=== PATIENT | female | born 1955 | race Two or more races ===

== ENCOUNTER 2023-09-29 07:09 | Emergency (ER) | payer OTHER ==
[~2023-09-29] VITALS: Ht 157.5 cm; Wt 63.5 kg
== END 2023-09-29 10:08 | disposition home or self-care (01) ==
LOC: ER 07:09
DX: J20.9 Acute bronchitis, unspecified (principal); E11.9 Type 2 diabetes mellitus without complications; I10 Essential (primary) hypertension; Z91.041 Radiographic dye allergy status

== ENCOUNTER 2024-10-30 14:18 | Emergency (ER) | payer OTHER ==
[~2024-10-30] VITALS: Ht 157.5 cm; Wt 61.2 kg
[2024-10-30] MEDS ORDERED: KETOROLAC TROMETHAMINE 60 MG VIAL IM ONE ×2 (17:00)
[2024-10-30] MEDS ORDERED: TRAMADOL HCL 50 MG TABLET PO ONE (18:45)
[2024-10-30 19:47] LABS: URINE APPEARANCE Clear; URINE BILIRRUBIN Negative (NEGATIVE); URINE BLOOD Negative; URINE COLOR Yellow; URINE KETONE Negative (NEGATIVE); URINE LEUKOCYTE Negative; URINE NITRATE Negative; URINE PROTEIN Negative (NEGATIVE); URINE UROBILINOGEN 0.2 E.U./dl
[2024-10-30 19:49] LABS: HEMATOCRIT 37.4 % (36.0-45.00); HEMOGLOBIN 12.2 g/dL (12.0-15.00); MEAN CELL VOLUME 88.7 fL (80.00-100.00); MEAN CORPUSCULAR HGB CONC 32.7 g/dl (32.0-36.0); PLATELET COUNT 208 K/uL (150-450); RED BLOOD COUNT 4.22 M/uL (4.00-6.00); RED CELL DISTRIBUTION WIDTH 14.4 % (11.5-14.5)
[2024-10-30 19:51] LABS: URINE BACTERIA 198.2 uL (0.0-1933); URINE EPITHELIAL CELLS 9.7 uL (0.0-38.8); URINE WBC 3.9 uL (0.0-23.2)
[2024-10-30 19:52] LABS: URINE CAST 0.58 uL (0.0-1.40); URINE GLUCOSE >=1000 MG/DL (NEGATIVE); URINE RBC 0.4 uL (0.0-20.8)
[2024-10-30 20:05] LABS: INR 0.95; PARTIAL THROMBOPLASTIN TIME 23.9 SECONDS (22.0-34.0); PROTHROMBIN TIME 10.4 SECONDS (9.0-11.5)
[2024-10-30 20:11] LABS: ALBUMIN 4.1 gm/dL (3.4-5.0); BILIRUBIN TOTAL 0.28 mg/dL (0.3-1.2); CALCIUM 10.1 mg/dL (8.5-10.1); CREATININE SERUM 1.2 mg/dL (0.55-1.02); GFR 44.81; GLOBULINA 4.2 G/DL (2.4-3.5); POTASSIUM 4.94 mEq/L (3.5-5.1); TOTAL PROTEIN 8.3 gm/dL (6.4-8.2)
== END 2024-10-30 20:55 | disposition home or self-care (01) ==
LOC: ER 14:20
PROVIDERS: General Practice
DX: S69.82XA Other specified injuries of left wrist, hand and finger(s), initial encounter (principal); W19.XXXA Unspecified fall, initial encounter; Y93.89 Activity, other specified; Y92.89 Other specified places as the place of occurrence of the external cause; Y99.8 Other external cause status; M12.539 Traumatic arthropathy, unspecified wrist; Z91.013 Allergy to seafood; Z91.041 Radiographic dye allergy status
CPT/HCPCS: 29125; 36415; 71046; 73100; 93005; 96372; 99283; J1885

== ENCOUNTER 2024-11-03 06:07 | Day surgery (SDC) | payer OTHER ==
[~2024-11-03] VITALS: Ht 157.5 cm; Wt 62.6 kg
[2024-11-03 14:43] VITALS: BP 117/68
[2024-11-03] MEDS ORDERED: CEFAZOLIN SODIUM 1,000 MG VIAL ONE (14:51)
[2024-11-03] MEDS ORDERED: LIDOCAINE HCL 1%/EPINEPHRINE 20ML VIAL IJ ONE (15:30)
[2024-11-03] MEDS ORDERED: BUPIVACAINE HCL/MPF 0.5% 30ML VIAL ONE (15:30)
[2024-11-03] MEDS ORDERED: POVIDONE-IODINE 118 ML BOTT TOP ONE (16:41)
[2024-11-03] MEDS ORDERED: DUI500 PO (16:59)
[2024-11-03] MEDS ORDERED: PERCOCET 5-3251 EACH PO (16:59)
[2024-11-03] MEDS ORDERED: ALEVE220 M1 PO (16:59)
== END 2024-11-03 19:40 | disposition home or self-care (01) ==
LOC: CIR.AMB 06:07
PROVIDERS: ATTEND Orthopaedic Surgery
DX: S52.532A Colles' fracture of left radius, initial encounter for closed fracture (principal); S52.692A Other fracture of lower end of left ulna, initial encounter for closed fracture; Z91.041 Radiographic dye allergy status; Z91.013 Allergy to seafood; M81.0 Age-related osteoporosis without current pathological fracture; J20.9 Acute bronchitis, unspecified; E11.9 Type 2 diabetes mellitus without complications; I10 Essential (primary) hypertension
CPT/HCPCS: 25609; 20902; 25101; 25652; L8699